=== PATIENT | male | born 1985 ===

== ENCOUNTER 2018-01-09 08:46 | Emergency (ER) | payer OTHER ==
[2018-01-09 09:11] VITALS: TEMP 98
--- NOTE | 2018-01-09 10:20 | ED PDOC ---
Arrival/HPI - General Chief Complaint: Chest Pain Time Seen by Provider: 01/09/18 09:12 Historian: Patient - History of Present Illness Narrative History of Present Illness (Text): 01/09/18 10:17 32yo male with no PMHx who present with complaint of chest pain. Notes pain is with movement or lifting objects. The cousin by the bedside reports history of same pain. States he was seen by a Doctor and told he have costochondritis. States he came to the Ed because he took Ibuprofen 400mg without relieve. He denies SOB, diaphoresis, LE edema, cough, recent travel, nausea, vomiting, abdominal pain, focal weakness, any other complaint. 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) - Psychiatric Hx Substance Use: No - Anesthesia Hx Anesthesia: Yes Hx Anesthesia Reactions: No Family/Social History - Physician Review Nursing Documentation Reviewed: Yes Family/Social History: Unknown Family HX Smoking Status: Current Some Days Smoker Hx Alcohol Use: Yes Frequency of alcohol use: Socially Hx Substance Use: No Allergies/Home Meds Allergies/Adverse Reactions: Allergies No Known Allergies Allergy (Verified 01/09/18 09:11) Review of Systems - Physician Review All systems were reviewed & negative as marked: Yes - Review of Systems Constitutional: Normal Eyes: Normal ENT: Normal Respiratory: Normal. absent: SOB, Cough Cardiovascular: Chest Pain. absent: Palpitations, Edema, Calf Pain, [place] Gastrointestinal: Normal Genitourinary Male: Normal Musculoskeletal: Normal Skin: Normal Neurological: Normal Endocrine: Normal Hemo/Lymphatic: Normal Psychiatric: Normal Physical Exam Vital Signs Reviewed: Yes Vital Signs Temp Pulse Resp BP Pulse Ox 01/09/18 09:02 98 F 66 18 112/55 L 100 Temperature: Afebrile Blood Pressure: Normal Pulse: Regular Respiratory Rate: Normal Appearance: Positive for: Well-Appearing, Non-Toxic, Comfortable Pain Distress: None Mental Status: Positive for: Alert and Oriented X 3 - Systems Exam Head: Present: Atraumatic, Normocephalic Pupils: Present: PERRL Extroacular Muscles: Present: EOMI Conjunctiva: Present: Normal Mouth: Present: Moist Mucous Membranes Neck: Present: Normal Range of Motion Respiratory/Chest: Present: Clear to Auscultation, Good Air Exchange. No: Respiratory Distress, Accessory Muscle Use, Wheezes, Decreased Breath Sounds, Rales, Retracting, Rhonchi, Tachypneic, Tender to Palpation Cardiovascular: Present: Regular Rate and Rhythm, Normal S1, S2. No: Murmurs Abdomen: Present: Normal Bowel Sounds. No: Tenderness, Distention, Peritoneal Signs Back: Present: Normal Inspection Upper Extremity: Present: Normal Inspection. No: Cyanosis, Edema Lower Extremity: Present: Normal Inspection. No: Edema Neurological: Present: GCS=15, CN II-XII Intact, Speech Normal Skin: Present: Warm, Dry, Normal Color. No: Rashes Psychiatric: Present: Alert, Oriented x 3, Normal Insight, Normal Concentration Medical Decision Making ED Course and Treatment: 01/09/18 10:22 Pt was hemodynamically stable in ED. His pain improved in ED with medication. EKG NSR @61bpm with nonspecific T wave abnormality CXR NAD Result was DW the pt. He have no personal/familial cardiac risk. He will be DC home with [facility] and referred to a senior game designer for outpt evaluation. - RAD Interpretation Radiology Orders: 01/09/18 09:23 CHEST TWO VIEWS (PA/LAT) [RAD] Stat - Medication Orders Current Medication Orders: Discontinued Medications Ketorolac Tromethamine (Toradol) 60 mg IM STAT STA Stop: 01/09/18 09:24 Last Admin: 01/09/18 09:44 Dose: 60 mg MAR Pain Assessment Document 01/09/18 09:44 SF (Rec: 01/09/18 09:44 [place] [id number] Pain Reassessment Is this a pain reassessment? Yes Sleep Is patient sleeping during reassessment? No Presence of Pain Presence of Pain Yes IM Administration Charges Document 01/09/18 09:44 SF (Rec: 01/09/18 09:44 [place] [id number] Injection Site MAR Injection Site Left Deltoid Charges for Administration # of IM Administrations 1 Disposition/Present on Arrival - Present on Arrival Any Indicators Present on Arrival: No History of DVT/PE: No History of Uncontrolled Diabetes: No Urinary Catheter: No History of Decub. 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
[2018-01-09 10:48] VITALS: BP 118/70; PULSE 64; RESP 17; O2SAT 99
--- NOTE | 2018-01-09 10:49 | RAD ---
HISTORY: chest pain COMPARISON: No prior. TECHNIQUE: Chest PA and lateral FINDINGS: LUNGS: No active pulmonary disease. PLEURA: No significant pleural effusion identified. No pneumothorax apparent. CARDIOVASCULAR: Normal. OSSEOUS STRUCTURES: No significant abnormalities. VISUALIZED UPPER ABDOMEN: Normal. OTHER FINDINGS: None. IMPRESSION: No active disease.
--- NOTE | 2018-01-09 19:45 | CARD ---
APPROVED REPORT EKG Measurement Heart [id number] <Conclusion> Normal sinus rhythm Nonspecific T wave abnormality Abnormal ECG
== END 2018-01-09 10:48 | disposition home or self-care (01) ==
LOC: ED 08:46
DX: R07.9 Chest pain, unspecified (principal)
CPT/HCPCS: 71046; 93005; 96372; 99284; J1885